=== PATIENT | male | born 1980 | race Caucasian/White ===

== ENCOUNTER 2018-06-15 09:56 | Emergency (ER) | payer OTHER ==
[~2018-06-15] VITALS: Ht 182.9 cm; Wt 113.4 kg
[~2018-06-15 09:56] MED LIST: AMPICILLIN TRI500 MG; NOHOMEMEDICATIONS; VICODIN ES TAB1 EACH
[2018-06-15 10:39] LABS: URINE BILIRUBIN NEGATIVE (Negative); URINE BLOOD NEGATIVE (Negative); URINE CLARITY CLEAR; URINE COLOR YELLOW; URINE GLUCOSE-RANDOM NEGATIVE (Negative); URINE KETONES NEGATIVE (Negative); URINE LEUKOCYTES NEGATIVE (Negative); URINE NITRITE NEGATIVE (Negative); URINE PROTEIN 1+ (Negative); URINE SPECIFIC GRAVITY 1.015 (1.005-1.030); URINE UROBILINOGEN 0.2 E.U./dl (0.2-1.0)
[2018-06-15 10:44] LABS: HEMOGLOBIN 17.1 gm/dL (14.0-18.0); MCH 32.2 pg (26.0-34.0); MCHC 34.1 g/dL (28.0-37.0); MCV 94.4 fL (80.0-100.0); MPV 7.1 fl. (7.2-11.1); RBC 5.29 mil/uL (4.50-6.00); WBC 7.9 thou/uL (4.0-11.0)
[2018-06-15 10:47] LABS: AMP/METHAMP Negative (Negative); BARBITURATES Negative (Negative); BENZODIAZEPINES Negative (Negative); COCAINE Negative (Negative); METHADONE Negative (Negative); OPIATES Negative (Negative); PCP Negative (Negative); THC POSITIVE (Negative)
[2018-06-15 10:59] LABS: ALCOHOL 283 mg/dL (<10); SALICYLATE 3.2 mg/dL (2.8-20.0)
[2018-06-15 11:00] LABS: ACETAMINOPHEN < 2 ug/mL (10-30)
[2018-06-15 11:13] LABS: CREATININE 0.9 mg/dL (0.6-1.3); POTASSIUM 3.9 mmol/L (3.5-5.1)
[2018-06-15 11:17] LABS: ALBUMIN 3.5 g/dL (3.4-5.0); TOTAL BILIRUBIN 0.3 mg/dL (<0.1-1.0)
[2018-06-15 14:21] VITALS: BP 138/103
== END 2018-06-15 14:35 | disposition home or self-care (01) ==
LOC: M.ERS 09:56
PROVIDERS: Personal Emergency Response Attendant
DX: F10.129 Alcohol abuse with intoxication, unspecified (principal); F41.0 Panic disorder [episodic paroxysmal anxiety]; F17.210 Nicotine dependence, cigarettes, uncomplicated; F12.10 Cannabis abuse, uncomplicated; Y90.8 Blood alcohol level of 240 mg/100 ml or more

== ENCOUNTER 2021-07-15 10:13 | Emergency (ER) | payer OTHER ==
[~2021-07-15] VITALS: Ht 177.8 cm; Wt 97.5 kg
[2021-07-15] MEDS ORDERED: HYDROCODON-ACE1 EAC7 PO (11:50)
[2021-07-15] MEDS ORDERED: NEURONTIN300 MG PO (11:53)
[2021-07-15 12:01] VITALS: BP 147/88
== END 2021-07-15 12:02 | disposition home or self-care (01) ==
LOC: M.ERS 10:13
DX: G51.9 Disorder of facial nerve, unspecified (principal); G57.93 Unspecified mononeuropathy of bilateral lower limbs; R20.0 Anesthesia of skin; F17.210 Nicotine dependence, cigarettes, uncomplicated